=== PATIENT | female | born 1995 | race Caucasian/White ===

== ENCOUNTER 2023-07-17 18:46 | Emergency (ER) | payer BC, SELFPAY ==
[2023-07-17 19:17] VITALS: BP 107/74; PULSE 97; RESP 18; TEMP 36.6; O2SAT 95; BMI 36.2
[2023-07-17 20:29] LABS: PCR FLU A Negative PCR FLU A (Negative); PCR FLU B Negative PCR FLU B (Negative); PCR RSV Negative PCR RSV (Negative); SARS PCR* Negative SARS-CoV-2 (Negative)
--- NOTE | 2023-07-17 21:08 | ED.GENADULT ---
HPI - General Adult General Time Seen by Provider: 21:08 Date Seen: 07/17/23 Chief complaint: Cough Stated complaint: Bad cough/diff breathing, sent home from work Time Seen by Provider: 07/17/23 20:56 Source: patient, RN notes reviewed and old records reviewed Mode of arrival: ambulatory Limitations: no limitations History of Present Illness HPI narrative: 28-year-old female who comes in today with cough, sinus congestion, sore throat, body aches that has been going on for about a week. Loose stools today, vomiting earlier in the week, no recorded fever. Denies chest pain, does have some shortness of breath with activity. Related Data Home Medications Medication Instructions Recorded Confirmed No Known Home Medications 07/17/23 07/17/23 Exam Narrative: Exam Narrative: General: Well-developed and well-nourished, no acute distress Head: Atraumatic and normocephalic Eyes: Pupils are equal reactive, extraocular motions intact, conjunctiva clear ENT: External nose and ears are normal, posterior pharynx without erythema or exudate Neck: No midline cervical tenderness, full spontaneous range of motion the neck, trachea midline, no adenopathy Heart: Regular rate and rhythm no murmurs or thrills Lungs: Clear to auscultation bilaterally without wheezes or crackles Abdomen: Soft, nontender, nondistended with active bowel sounds Musculoskeletal: No tenderness, deformity, or edema Neurologic: Awake, alert, and oriented x3, no gross focal neurologic deficits, cranial nerves intact as tested Psych: Mood and affect are appropriate Skin: No rashes Const: Vital Signs, click to edit/add: Vital Signs - 24 hr 07/17/23 19:17 Temperature 97.8 F Pulse Rate [Right Pulse Oximeter] 97 Respiratory Rate 18 Blood Pressure [Ri ght Upper Arm] 107/74 Pulse Oximetry 95 Oxygen Delivery Me thod Room Air Course Course ED Course: Patient seen examined, prior records are reviewed. Patient presents with upper respiratory symptoms that have been going on for about a week. On exam, no hypoxia, no fever, vital is stable. Frequent cough, no wheezing or crackles on exam. Labs independently interpreted by me with negative respiratory swab. Continue symptom management, discharge with prednisone and Robitussin AC to help with symptom management , consider chest x-ray but lungs are clear and no fever, also multi-system symptoms most consistent with viral process Vital Signs Vital signs: Initial Vital Signs Temperature 97.8 F 07/17/23 19:17 Temperature Source Temporal Artery Scan 07/17/23 19:17 Pulse Rate 97 07/17/23 19:17 Pulse Rhythm Regular 07/17/23 19:17 Pulse Strength 3+ Normal 07/17/23 19:17 Respiratory Rate 18 07/17/23 19:17 Blood Pressure 107/74 07/17/23 19:17 Blood Pressure Mean 85 07/17/23 19:17 Blood Pressure Position Sitting 07/17/23 19:17 Pulse Oximetry 95 07/17/23 19:17 Oxygen Delivery Method Room Air 07/17/23 19:17 Vital Signs Temperature 97.8 F 07/17/23 19:17 Pulse Rate 97 07/17/23 19:17 Respiratory Rate 18 07/17/23 19:17 Blood Pressure 107/74 07/17/23 19:17 Pulse Oximetry 95 07/17/23 19:17 Oxygen Delivery Method Room Air 07/17/23 19:17 Temperature 97.8 F 07/17/23 19:17 Pulse Rate 97 07/17/23 19:17 Respiratory Rate 18 07/17/23 19:17 Blood Pressure 107/74 07/17/23 19:17 Pulse Oximetry 95 07/17/23 19:17 Oxygen Delivery Method Room Air 07/17/23 19:17 Medical Decision Making Lab Data Labs: Lab Results 07/17/23 Range/Units 19:28 SARS-CoV-2 (PCR) Negative SARS-CoV-2 (Negative) Influenza Type A (PCR) Negative PCR FLU A (Negative) Influenza Type B (PCR) Negative PCR FLU B (Negative) RSV (PCR) Negative PCR RSV (Negative) Discharge Plan Discharge Clinical Impression: Acute upper respiratory infection Patient Disposition: Home, Self-Care Condition: Stable Instructions: Viral Syndrome (ED) Additional Instructions: Continue nasal decongestants and [id number] cough and cold medication Take prednisone as prescribed Use Robitussin with codeine to help with cough at night, do not drive FD take this Activity Level: Activity as Tolerated Discharge Diet: Regular Prescriptions: No Action No Known Home Medications Stand Alone Forms: MyHealth Info Instructions
== END 2023-07-17 21:24 | disposition home or self-care (01) ==
LOC: ED 21:24
PROVIDERS: Emergency Provider Family Medicine
DX: J06.9 Acute upper respiratory infection, unspecified (principal)
CPT/HCPCS: 87631; 99283